=== PATIENT | female | born 1990 | race Hispanic/Latino ===

== ENCOUNTER 2017-03-19 19:07 | Inpatient (IN) | payer MEDICAID ==
[~2017-03-19] VITALS: Ht 142.2 cm; Wt 73.5 kg
[~2017-03-19 19:07] MED LIST: DOCU-42 PO; HYDR1TAB PO; IBUP-1149 PO; PREN1TAB69 PO
[2017-03-19] MEDS ORDERED: Oxytocin 30 Units/500 mL LR 30 UNITS in IV Premix 1 EACH IV PRN (23:05)
--- NOTE | 2017-03-19 23:05 | PCM.HPOB ---
Subjective Date of Service: Mar 19, 2017 Referring Provider: Admitting Physician: Shannon Vásquez MD Primary Care Physician: Rosio Moser MD Attending Physician: Shannon Vásquez MD Chief Complaint leaking fluid since 11 AM this morning, ferning pos. History of Present History of Present Illness pt, 26 y/o, at 41 wk 2 d gestational age, reported leaking since 11 AM today; ferning pos per Dr. Cunningham who saw the pt this afternoon at Sep; Initial exam by nurse Flor: 1 cm dilation, 75% effacement; -3 stage, with Delgadillo score of 7. pt is not feeling her irregular contractions; tracing normal. The case was then discussed with Dr. Haq. The plan is to start Pitocin augmentation. pt sees Dr. Moser for care; Labs: B+; VDRL NR; Rubella immune; HBsAg Negative; HIV negative; GC/CT negative; Quad screen negative; 1 hr KUG=226; 3 hr GTT=[id number], not meet criteria for GDM; GBS negative; OB History: (3), Para (2), Term Obstetrical Complications: None Past Medical History Obstetrical History: normal vaginal delivery x 2. Hx Tobacco Use: No Hx Alcohol Use: No Hx Substance Use: No Past Family History Living Arrangement: with Family Review of Systems ROS vaginal discharge or leaking fluid; no other complaints. Allergy Coded Allergies: No Known Allergies (Verified , 04/18/06) Exam Vital Signs reviewed: normal, stable: 122/67; Temp=36.6 Exam category 1 tracing Constitutional: Well-developed, Well-nourished, Normal habitus HEENT: Atraumatic, PERRLA Lungs: Clear to Auscultation Heart: Exam Unremarkable, Regular Rate/Rhythm, Normal S1, Normal S2 Abdomen: Gravid Labs/Diagnostics Labs Hgb=13.1; etg=529 Maternal Blood Type: B Hx Rho(D) Immune Globulin: No Antibody Screen: negative Group B Strep Results: Negative Previous Infant with GBS: No Rubella: Immune OB Intrapartum Assessment/Plan Assessment term at 41 wk 2 d by 13 wk u/s, premature rupture membrane at ~11 AM today; GBS neg. The case was discussed with Dr. Haq; will start with Pitocin augmentation. Pt declined epidural anesthesia for now. Shannon Vásquez MD Mar 19, 2017 23:05
[2017-03-19] MEDS ORDERED: fentaNYL-PF 50 mCg/mL 2 mL Inj IVPUSH PRN (23:25)
[2017-03-19] MEDS ORDERED: Carboprost 250 mCg/mL Inj IM PRN (23:25)
[2017-03-19] MEDS ORDERED: Sodium Chloride LOK Flush 10 mL Syringe IVFLUSH PRN (23:25)
[2017-03-19] MEDS ORDERED: Hemorrhage Kit, Post Partum XX ONE (23:25)
[2017-03-19] MEDS ORDERED: Oxytocin 10 Unit/mL Inj IM PRN (23:25)
[2017-03-19] MEDS ORDERED: Methylergonovine 0.2 mg/mL Inj IM PRN (23:25)
[2017-03-19] MEDS: Lactated Ringer's 1,000 ML IV PRN (23:34)
[2017-03-19 23:48] LABS: Mean Corpuscular Hemoglobin 26.6 pg (27.0-35.0); Mean Corpuscular Volume 79.7 fL (81-100)
[2017-03-20] MEDS: Lactated Ringer's 1,000 ML IV PRN (03:58)
[2017-03-20] MEDS ORDERED: Oxytocin 30 Units/500 mL LR Premix IV ONE (07:45)
[2017-03-20] MEDS ORDERED: Lactated Ringer's 1,000 ML IV SCH (07:57)
[2017-03-20] MEDS ORDERED: Oxytocin 10 Unit/mL Inj IM PRN (08:00)
[2017-03-20] MEDS ORDERED: Methylergonovine 0.2 mg/mL Inj IM PRN (08:00)
[2017-03-20] MEDS ORDERED: Carboprost 250 mCg/mL Inj IM PRN (08:00)
[2017-03-20] MEDS ORDERED: HYDROcodone-APAP 5-325 mg Tablet PO PRN (08:00)
[2017-03-20] MEDS ORDERED: LANOlin HPA 7 Gm Ointment TOPICAL PRN (08:00)
[2017-03-20] MEDS ORDERED: Witch Hazel-Glycerin Pads TOPICAL PRN (08:00)
[2017-03-20] MEDS ORDERED: Hemorrhage Kit, Post Partum XX ONE (08:00)
[2017-03-20] MEDS ORDERED: Oxytocin 30 Units/500 mL LR 30 UNITS in IV Premix 1 EACH IV PRN (08:00)
[2017-03-20] MEDS ORDERED: Benzocaine (Dermoplast) 20% 60 Gm Spray TOPICAL PRN (08:00)
--- NOTE | 2017-03-20 08:07 | PCM.OBVAG ---
Vaginal Delivery Date of Service Mar 20, 2017 Pre Operative Diagnosis Pre Operative Diagnosis premature rupture of membrane at term; successful induction of labor using Pitocin; Post Operative Diagnosis Post Operative Diagnosis normal vaginal delivery at 41 wk 3 d Procedure Procedure: Normal vaginal delivery at 7:13 AM today, shortly after the dilation was complete; head position: PRIMITIVO; tight nuchal cord x 2, reduced after the was delivered; the baby boy was placed to mother's abdomen immediately; cord clamp was delay for half min. Apg=4/9; the cried at 1 min after ; initially flaccid; recovered to normal condition in 3 min. Placenta was then delivered intact, with a 3-v cord. Estimated blood loss: 350 ml.First degree left labia tear was noticed, repaired using 4-0 vicryl and 3-0 vicryl sutures after local anesthesia using 1% lidocaine. Sharps and needles were disposed appropriately; sponge count was correct. Both the mother and her remained in stable conditions after the delivery. pt declined epidural anesthesia use. Obstetical Procedure: Normal Spontaneous Vaginal Delivery Trade Recruiter/Clock Maker Provider and Clock Maker: Dr. Vásquez and the nursing staff; Dr. Castro was present for the for the presence of meconium. Indication for Procedure Induction: Induction of labor, Pitocin augmentation Findings Obstetrical Findings: Cord (3 Vessel), 1 minute (4), 5 minutes (9) , Placenta (Intact/Normal), Perineal Laceration (1st degree) Analgesia/Medications Obstetrical Anesthesia: Local (prior to the tear repair) Blood Loss & Administration Estimated Blood Loss: 350 Blood Admin during procedure: No Post Procedure Plan Post delivery Condition: Mom stable, Baby stable to nursery Shannon Vásquez MD Mar 20, 2017 08:07
[2017-03-21 06:54] LABS: Mean Corpuscular Hemoglobin 26.8 pg (27.0-35.0); Mean Corpuscular Volume 81.5 fL (81-100)
--- NOTE | 2017-03-21 08:01 | PCM.DIOB ---
Obstetrical Disch Instruction Date of Service: Mar 21, 2017 Dates of Hospitalization Date of Hospital Admission Mar 19, 2017 at 20:51 Providers Admitting Physician: Shannon Vásquez MD Primary Care Physician: Rosio Moser MD Attending Physician: Shannon Vásquez MD Discharge Diagnosis Problems: (1) Term Status: Acute ICD Code: Z34.80 (2) PROM (premature rupture of membranes) Qualifiers: PROM onset of labor timing: onset of labor within 24 hours of rupture PROM gestational age: full term Qualified Code: O42.02 - Full-term premature rupture of membranes, onset of labor within 24 hours of rupture Status: Resolved ICD Code: O42.90 (3) (normal spontaneous vaginal delivery) Status: Acute ICD Code: O80 Diet Discharge Diet: No restrictions Activity Discharge Activity-General: Pelvic Rest for 6 weeks Dressing and Incisional Care Hygiene: May shower, Perineal care, Sitz bath, Dermoplast spray, Witch Antonia pads Additional Instructions Discharge Instructions ibuprofen, PNVs, DSS all sent electronically to [facility] pharmacy, done by Dr. Cunningham through [facility] outpatient electronic medical record Follow Up Plan Follow-up Provider (F9): Rosio Moser MD Follow-up appointment: Weeks (6) Call your provider for: Fever or Chills, Shortness of breath, Heavy vaginal bleeding, Epigastric pain, Excessive constipation, Vaginal discomfort, Red painful breasts, Other (swollen, painful leg) Dez Cunningham MD Mar 21, 2017 08:01
--- NOTE | 2017-03-26 10:42 | DIS ---
[address] [address] DISCHARGE SUMMARY PATIENT: JOSE LEBRON : 1990 MR#: [id number] ADMIT: 03/19/2017 JOB ID: [id number] DIS: 03/21/2017 ADMIT DATE: 03/19/2017 DISCHARGE DATE: 03/21/2017 ADMIT DIAGNOSIS: Gravid 3, para 2 at 41 weeks and 2 days with PROM. DISCHARGE DIAGNOSES: G3 now P3, status post normal spontaneous vaginal delivery, with successful induction for PROM. HOSPITAL COURSE: Please see admit H and P and delivery note by Dr. Vásquez. After delivery patient did well , good by mouth intake and normal bowel and bladder function. Normal lochia. No fever. No signs of infection or other complication. Breast-feeding without complications. OBJECTIVE: Her vital signs are stable. She is afebrile. She is in no acute distress. Pleasant, cooperative. Cardiovascular regular rate and rhythm. S1, S2. No murmurs, gallops, or rubs. Lungs clear to auscultation bilaterally without crackles, rhonchi, or wheezes. Lower extremities without edema. Nontender. Abdomen is soft. Uterine fundus 2 fingerbreadths below the umbilicus in the midline, moderately firm, and firms well with massage. DISCHARGE LABS: Show white count 8.5, hematocrit 34.7, platelets 154. DISCHARGE INSTRUCTIONS: The patient is to follow up in six weeks with the [facility], probable followup with Dr. Moser who provided her care. Ibuprofen, vitamins, and docusate were all sent electronically to the patient's outpatient pharmacy. Reviewed usual signs and symptoms of peripartum complications and reviewed with the patient how to access care and manage those as they occur. MARLA
== END 2017-03-21 09:33 | disposition home or self-care (01) | DRG 560 ==
LOC: FBC 20:51
PROVIDERS: ADMIT Family Medicine; ATTEND Family Medicine
PROC: 10E0XZZ Delivery of Products of Conception, External Approach (ICD-10-PCS; principal; 2017-03-20)
DX: O48.0 Post-term pregnancy (principal); O69.1XX0 Labor and delivery complicated by cord around neck, with compression, not applicable or unspecified; Z3A.41 41 weeks gestation of pregnancy; Z37.0 Single live birth